=== PATIENT | male | born 1950 | race Caucasian/White ===

== ENCOUNTER → 2019-05-04 | Outpatient (CLI) | payer MEDICARE, OTHER ==
[~2019-05-04] MED LIST: AMITRIPTYLINE H25 M2 PO; ASPIR 8181 MG PO; EXFORGEHCT; FLEXERIL PO; GLUMETZA1000; GLYBURIDE 2.52.5 M1; IBUPROFEN 600600 M1 PO; IRON; MOBIC15 MG PO; MULTIVITAMINS; NEXIUM40 MG; NORCO 5-325 TA1 EACH PO; PRENATAL; SYNTHROID50 MCG; TRULICITY0.75 MG/0.; VITAMIN B-12500 MCG; WELCHOL 625 MG625 MG; ZYVOX600 MG PO
[2019-05-04 08:00] LABS: POTASSIUM 3.3 mmol/L (3.5-5.1)
== END ==
LOC: M.LAB 04:50
PROVIDERS: Anesthesiology
DX: E87.6 Hypokalemia (principal); E11.9 Type 2 diabetes mellitus without complications